=== PATIENT | female | born 1990 | race Caucasian/White ===

== ENCOUNTER 2016-11-29 16:27 | Emergency (ER) | payer MEDICAID, OTHER ==
[~2016-11-29] VITALS: Ht 160 cm; Wt 89.8 kg
--- NOTE | 2016-11-29 17:18 | NUR ---
MSE COMPLETED, PT D/C'D HOME, ACI/RX X1 GIVEN. PT AMBULATED W/O DIFF/TOOK ALL BELONGINGS.
[2016-11-29 17:19] VITALS: BP 110/98
== END 2016-11-29 17:20 | disposition home or self-care (01) ==
LOC: ER 16:29
DX: O99.512 Diseases of the respiratory system complicating pregnancy, second trimester (principal); Z3A.16 16 weeks gestation of pregnancy
CPT/HCPCS: A4663

== ENCOUNTER 2018-11-09 08:27 | Emergency (ER) | payer OTHER, MEDICAID ==
[~2018-11-09] VITALS: Ht 160 cm; Wt 85.7 kg
[2018-11-09] MEDS ORDERED: KETOROLAC TROMETHAMINE 60 MG INJ IM ONE ×2 (08:58→09:00)
--- NOTE | 2018-11-09 09:00 | NUR ---
PT IS IN ROOM #1A. DR CABA EVALUATED THE PT.
--- NOTE | 2018-11-09 09:50 | NUR ---
PT WAS D/C'D TO HOME AFTER DR CABA EVALUATION. D/C INSTRUCTIONS GIVEN TO THE PT.
[2018-11-09 09:54] VITALS: BP 126/71
== END 2018-11-09 12:29 | disposition home or self-care (01) ==
LOC: ER 08:27
DX: M43.6 Torticollis (principal); F17.200 Nicotine dependence, unspecified, uncomplicated; Z88.5 Allergy status to narcotic agent; X50.0XXA Overexertion from strenuous movement or load, initial encounter; Y93.89 Activity, other specified; Y92.39 Other specified sports and athletic area as the place of occurrence of the external cause; Y99.8 Other external cause status
CPT/HCPCS: 72040; 96372; 99283; J1885; A4663